=== PATIENT | female | born 1990 | race American Indian/Alaskan Native ===

== ENCOUNTER 2020-10-21 15:52 | Emergency (ER) | payer SELFPAY ==
[2020-10-21 17:34] VITALS: BP 108/71
[2020-10-21] MEDS ORDERED: METOCLOPRAMIDE 10 MG TAB PO ONE ×2 (18:22→20:56)
[2020-10-21] MEDS ORDERED: diphenhydrAMINE 25 MG CAP PO ONE ×2 (18:22→20:56)
[2020-10-21] MEDS ORDERED: HYDROcodone/ACETAMINOPHEN 5-325 MG TAB PO ONE ×2 (18:22→20:56)
--- NOTE | 2020-10-21 18:26 | Event Note ---
ED Screening Note Date of service: 10/21/20 Time: 18:24 ED Screening Note: Patient 29-year-old -[place] female A2 who is currently 6 weeks who presents for abdominal pain with vaginal bleeding times today. Seen by COUNTER INTELLIGENCE AGENT advised to present to ED. Patient states pain is 5/10 aching cramping pain is exacerbated by movement and palpation. Pain is relieved by nothing tried. There is been no fever, chills, patient does endorse nausea. This initial assessment/diagnostic orders/clinical plan/treatment(s) is/are subject to change based on patients health status, clinical progression and re- assessment by fellow clinical providers in the ED. Further treatment and workup at subsequent clinical providers discretion. Patient/guardian urged not to elope from the ED as their condition may be serious if not clinically assessed and managed. Initial orders include: CBC, ABO, IV, HCG, ua, US OB, reglan, hydrocodone, benadryl,
[2020-10-21 18:58] LABS: Basophils % (Auto) 0.3 % (0.0-1.8); Eosinophils # (Auto) 0.2 K/mm3 (0.0-0.4); Eosinophils % (Auto) 1.7 % (0.0-4.3); Hematocrit 39.4 % (30.3-42.9); Hemoglobin 13.3 gm/dl (10.1-14.3); Lymphocytes % (Auto) 27.6 % (13.4-35.0); Mean Corpuscular HGB Conc 34 % (30-34); Mean Corpuscular Volume 85 fl (79-97); Monocytes # (Auto) 0.8 K/mm3 (0.0-0.8); Monocytes % (Auto) 7.6 % (0.0-7.3); Platelet Count 229 K/mm3 (140-440); Red Blood Count 4.63 M/mm3 (3.65-5.03); Red Cell Distribution Width 14.2 % (13.2-15.2)
== END 2020-10-21 21:30 | disposition left against medical advice (07) ==
LOC: EDSEX → ED 15:52
DX: R10.9 Unspecified abdominal pain (principal); Z53.21 Procedure and treatment not carried out due to patient leaving prior to being seen by health care provider
CPT/HCPCS: 36415; 84702; 85025; 86900; 86901